=== PATIENT | female | born 1990 | race Caucasian/White ===

== ENCOUNTER 2021-01-19 17:04 | Emergency (ER) | payer SELFPAY ==
[2021-01-19 18:32] VITALS: BP 134/81
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
[2021-01-19 18:57] LABS: Bacteria,Urine 1+ /HPF (Negative); Bilirubin,Urine NEG (Negative); Blood,Urine SM (Negative); Color,Urine Yellow (Yellow); Mucus,Urine FEW /HPF; Protein,Urine <15 mg/dL mg/dL (Negative); Urobilinogen,Urine < 2.0 mg/dL (<2.0)
[2021-01-19 19:15] LABS: HCG Qualitative,Urine Negative (Negative)
[2021-01-19] MEDS ORDERED: KETOROLAC 30 MG/1 ML INJ IM ONE (19:21)
[2021-01-19] MEDS ORDERED: dexAMETHasone 20 MG/5 ML VIAL IM ONE (19:21)
--- NOTE | 2021-01-19 20:22 | Cat Scan Report ---
CT LUMBAR SPINE WITHOUT CONTRAST HISTORY: Numbness and tingling in the legs COMPARISON: None TECHNIQUE: CT images of the lumbar spine were obtained without contrast. Sagittal and coronal reform ats were post-processed.All CT scans at this location are performed using CT dose reduction for ALARA by means of automated exposure control. CONTRAST: None. FINDINGS: Alignment: Normal. No traumatic subluxation. Vertebrae:Normal Disc spaces: L1-L2, L2-L3 and L3-L4 disc spaces: Normal L4-L5: Shallow disc bulge; mild facet joint hypertrophic changes; neuroforamina are normal L5-S1: Bulging disc; neuroforamina are normal Facet Joints:No significant abnormality. Additional Findings: Nonobstructive renal calculi bilaterally IMPRESSION: 1. No significant abnormality. Signer Name: Caitlin Obrien MD Signed: 01/19/2021 8:18 PM Workstation Name: [id number]
== END 2021-01-19 21:09 | disposition home or self-care (01) ==
LOC: ED 17:04
DX: M51.26 Other intervertebral disc displacement, lumbar region (principal); F12.90 Cannabis use, unspecified, uncomplicated; F17.200 Nicotine dependence, unspecified, uncomplicated; Z79.899 Other long term (current) drug therapy; V89.2XXA Person injured in unspecified motor-vehicle accident, traffic, initial encounter; Y93.89 Activity, other specified; Y92.488 Other paved roadways as the place of occurrence of the external cause; Y99.8 Other external cause status
CPT/HCPCS: 72131; 81001; 81025; 96372; 99284; J1100; J1885

== ENCOUNTER 2021-07-31 02:53 | Emergency (ER) | payer MEDICAID ==
[2021-07-31 05:16] VITALS: BP 133/86
[2021-07-31] MEDS ORDERED: KETOROLAC 30 MG/1 ML INJ IM ONE ×2 (05:33→08:12)
[2021-07-31] MEDS ORDERED: dexAMETHasone 20 MG/5 ML VIAL IM ONE ×2 (05:33→08:12)
--- NOTE | 2021-07-31 06:30 | XRay Report ---
Cervical spine 3 views INDICATION: Neck pain FINDINGS: Mild straightening of normal cervical spine curvature. No prevertebral soft tissue swelling . No acute fracture. Signer Name: Ozzy Cole MD Signed: 07/31/2021 6:26 AM Workstation Name: [id number]
[2021-07-31] MEDS ORDERED: KETOROLAC 30 MG/1 ML INJ IM SCH (08:00)
[2021-07-31] MEDS ORDERED: dexAMETHasone 20 MG/5 ML VIAL IM SCH (08:00)
--- NOTE | 2021-07-31 08:12 | Emergency Department Report ---
ED General Adult HPI - General Chief complaint: Extremity Injury, Upper Stated complaint: RIGHT ARM PAIN Time Seen by Provider: 07/31/21 07:43 Source: patient Mode of arrival: Ambulatory Limitations: No Limitations - History of Present Illness Initial comments: 31-year-old morbid obese -[place] female presents to the emergency room complaining of 8-day history of right arm pain that feels like electrical sharp pain that is constantly running from her right side of her neck to her fingers. She denies any trauma. She states that she had only lifted a heavy suitcase. She states she has tried ibuprofen Tylenol and IcyHot with no resolution. She states that she did take a muscle relaxant that she thought was 300 mg. Her last menstrual period was 06/30/2021 no possibility of being . Onset/Timin -: days(s) Location: right, upper extremity Radiation: distal Severity scale (0 -10): 9 Quality: sharp, other (Tingling electrical shocks) Consistency: constant Improves with: none Worsens with: movement (Appears to be gabapentin) Associated Symptoms: denies other symptoms Treatments Prior to Arrival: none - Related Data Previous Rx's Medication Instructions Recorded Last Taken Type Menthol/Camphor [[place] 1 applicatio TP BID #18 oint...g. 01/19/21 Unknown Rx Ointment] Naproxen 375 mg PO BID PRN #20 tablet 01/19/21 Unknown Rx Prednisone [predniSONE 10 mg 10 mg PO .TAPER #1 tab.ds.pk 01/19/21 Unknown Rx (6-Day Pack, 21 Tabs)] methOCARBAMOL [Robaxin TAB] 500 mg PO BID PRN #20 tab 01/19/21 Unknown Rx Gabapentin 100 mg PO Q8HR #15 capsule 07/31/21 Unknown Rx Ketorolac [Toradol] 10 mg PO Q6H PRN #20 07/31/21 Unknown Rx Allergies Allergy/AdvReac Type Severity Reaction Status Date / Time No Known Allergies Allergy Unverified 01/19/21 18:32 ED Review of Systems ROS: Stated complaint: RIGHT ARM PAIN Other details as noted in HPI Comment: All other systems reviewed and negative ED Past Medical Hx - Past Medical History Previous Medical History?: No - Social History Smoking Status: Current Some Day Smoker Substance Use Type: Marijuana - Medications Home Medications: Home Medications Medication Instructions Recorded Confirmed Last Taken Type Menthol/Camphor [[place] 1 applicatio TP BID #18 oint...g. 01/19/21 Unknown Rx Ointment] Naproxen 375 mg PO BID PRN #20 tablet 01/19/21 Unknown Rx Prednisone [predniSONE 10 mg 10 mg PO .TAPER #1 tab.ds.pk 01/19/21 Unknown Rx (6-Day Pack, 21 Tabs)] methOCARBAMOL [Robaxin TAB] 500 mg PO BID PRN #20 tab 01/19/21 Unknown Rx Gabapentin 100 mg PO Q8HR #15 capsule 07/31/21 Unknown Rx Ketorolac [Toradol] 10 mg PO Q6H PRN #20 07/31/21 Unknown Rx ED Physical Exam - General Limitations: No Limitations General appearance: alert, in no apparent distress - Head Head exam: Present: atraumatic, normocephalic - Eye Eye exam: Present: normal appearance - ENT ENT exam: Present: normal external ear exam - Neck Neck exam: Present: full ROM - Respiratory Respiratory exam: Present: normal lung sounds bilaterally. Absent: respiratory distress, accessory muscle use - Cardiovascular Cardiovascular Exam: Present: regular rate, normal rhythm - Expanded Upper Extremity Exam Right Shoulder Exam: Present: full ROM. Absent: tenderness, swelling Upper Arm exam: Present: normal inspection, full ROM. Absent: tenderness Elbow exam: Present: normal inspection. Absent: full ROM, tenderness Forearm Wrist exam: Present: normal inspection, full ROM. Absent: tenderness, swelling Hand Wrist exam: Present: normal inspection, full ROM. Absent: tenderness Neuro motor exam: Present: wrist extension intact, thumb opposition intact, thumb IP flexion intact Neurosensory exam: Present: 2-point discrimination, radial nerve intact, ulnar nerve intact, median nerve intact Vascular: Present: normal capillary refill. Absent: vascular compromise - Back Exam Back exam: Present: normal inspection - Neurological Exam Neurological exam: Present: alert, oriented X3, normal gait - Psychiatric Psychiatric exam: Present: normal affect, normal mood - Skin Skin exam: Present: warm, dry, intact, normal color. Absent: rash ED Course Vital Signs 07/31/21 05:14 Temperature 98.0 F Pulse Rate 69 Respiratory 20 Rate Blood Pressure 133/86 [Right] O2 Sat by Pulse 98 Oximetry ED Medical Decision Making - Medical Decision Making 31-year-old morbid obese -[place] female presents to the emergency room complaining of 8-day history of right arm pain that feels like electrical sharp pain that is constantly running from her right side of her neck to her fingers. She denies any trauma. She states that she had only lifted a heavy suitcase. She states she has tried ibuprofen Tylenol and IcyHot with no resolution. She states that she did take a muscle relaxant that she thought was 300 mg. Her last menstrual period was 06/30/2021 no possibility of being . Patient is given a Toradol injection of 30 mg IM and a steroid injection of dexamethasone 10 mg IM. Discussed with patient I will place her on gabapentin 100 mg 3 times a day for 5 days and she is to follow-up with an orthopedic provider and a neurologist. Critical care attestation.: If time is entered above; I have spent that time in minutes in the direct care of this critically ill patient, excluding procedure time. ED Disposition Clinical Impression: Right upper limb pain, Numbness and tingling of right arm Disposition: 01 HOME / SELF CARE / HOMELESS Is pt being admited?: No Does the pt Need Aspirin: No Condition: Stable Instructions: Paresthesia, [id number] Additional Instructions: Please take medications as prescribed. Do not operate heavy machinery while taking gabapentin. Is important to increase your fluid intake. Follow-up with a neurologist as well as an orthopedic provider I have listed their information below for your convenience. Prescriptions: Gabapentin 100 mg PO Q8HR #15 capsule Ketorolac [Toradol] 10 mg PO Q6H PRN #20 PRN Reason: Pain Referrals: PRIMARY MD RUI [Primary Care Provider] - 3-5 Days NIGEL GALAVIZ II, MD [Staff Physician] - 3-5 Days [facility] [Provider Group] - 3-5 Days Forms: Work/School Release Form(ED)
== END 2021-07-31 09:16 | disposition home or self-care (01) ==
LOC: ED 02:53
DX: M79.621 Pain in right upper arm (principal); R20.2 Paresthesia of skin; F17.200 Nicotine dependence, unspecified, uncomplicated; F12.90 Cannabis use, unspecified, uncomplicated
CPT/HCPCS: 72040; 96372; 99283; J1100; J1885

== ENCOUNTER 2021-08-12 22:42 | Emergency (ER) | payer MEDICAID ==
[2021-08-13 02:41] VITALS: BP 150/85
[2021-08-13 03:20] LABS: Basophils # (Auto) 0.1 K/mm3 (0.0-0.1); Basophils % (Auto) 0.6 % (0.0-1.8); Eosinophils % (Auto) 0.3 % (0.0-4.3); Hematocrit 35.5 % (30.3-42.9); Hemoglobin 11.5 gm/dl (10.1-14.3); Lymphocytes # (Auto) 3.3 K/mm3 (1.2-5.4); Lymphocytes % (Auto) 29.3 % (13.4-35.0); Mean Corpuscular HGB Conc 32 % (30-34); Mean Corpuscular Volume 87 fl (79-97); Monocytes # (Auto) 0.8 K/mm3 (0.0-0.8); Monocytes % (Auto) 7.2 % (0.0-7.3); Platelet Count 339 K/mm3 (140-440); Red Blood Count 4.07 M/mm3 (3.65-5.03); Red Cell Distribution Width 14.6 % (13.2-15.2)
--- NOTE | 2021-08-13 03:35 | Emergency Department Report ---
ED Abdominal Pain HPI - General Chief Complaint: Urogenital-Female Stated Complaint: TUBE PUI?: No Time Seen by Provider: 08/13/21 03:15 Source: patient Mode of arrival: Ambulatory Limitations: No Limitations - History of Present Illness Initial Comments: 31-year-old female presents to the ER today with complaints of left flank pain. Patient states that the symptoms started 2 days ago. She states that the pain has been radiating to her left abdomen. She described as a constant sharp pain and she states that he has been constant and very severe for the past 2 days. She states that she has had multiple episodes of vomiting. She reports urinary frequency but no hematuria or dysuria. She denies any bowel changes. She denies any fever or chills. She denies any abnormal vaginal bleeding. She states that her last menstrual cycle was July 23 but she noticed that it was credit authorizer than normal and only lasted 2 to 3 days. Patient states that she thought her symptoms were related to her kidney stones as she has had them before in the past. She went to the urgent care yesterday, and she states that the lab work including STD testing and HIV and a urinalysis. She states that she found out she was . She states that the provider was concerned that she may be having an ectopic and recommended she come to the ER. Patient states that she is AB 4. Complaint: flank pain -: days(s) (2) Severity scale (0 -10): 3 - Related Data Previous Rx's Medication Instructions Recorded Last Taken Type Menthol/Camphor [[place] 1 applicatio TP BID #18 oint...g. 01/19/21 Unknown Rx Ointment] Naproxen 375 mg PO BID PRN #20 tablet 01/19/21 Unknown Rx Prednisone [predniSONE 10 mg 10 mg PO .TAPER #1 tab.ds.pk 01/19/21 Unknown Rx (6-Day Pack, 21 Tabs)] methOCARBAMOL [Robaxin TAB] 500 mg PO BID PRN #20 tab 01/19/21 Unknown Rx Gabapentin 100 mg PO Q8HR #15 capsule 07/31/21 Unknown Rx HYDROcodone/APAP 5-325 [[place] 1 each PO Q4HR PRN #10 tablet 08/13/21 Unknown Rx 5/325] Ketorolac [Toradol] 10 mg PO Q6H PRN #20 02/08/22 Unknown Rx Ondansetron [Zofran Odt] 4 mg PO Q8HR PRN #12 tab.rapdis 08/13/21 Unknown Rx Tamsulosin [Flomax] 0.4 mg PO QDAY #5 cap 08/13/21 Unknown Rx Allergies Allergy/AdvReac Type Severity Reaction Status Date / Time banana Allergy Itching Verified 08/13/21 02:36 kiwi Allergy Itching Verified 08/13/21 02:36 ED Review of Systems ROS: Stated complaint: TUBE Other details as noted in HPI Comment: All other systems reviewed and negative Constitutional: denies: chills, fever, malaise, weakness Eyes: denies: eye pain, eye discharge, vision change ENT: denies: ear pain, throat pain Respiratory: denies: cough, shortness of breath, SOB with exertion, SOB at rest, wheezing Cardiovascular: denies: chest pain, palpitations, dyspnea on exertion Gastrointestinal: abdominal pain, nausea, vomiting, other (Left flank pain). denies: diarrhea, constipation, hematemesis, hematochezia Genitourinary: denies: urgency, dysuria, frequency, hematuria, discharge, dyspareunia Musculoskeletal: denies: back pain, joint swelling, arthralgia Skin: denies: rash, lesions, change in color, change in hair/nails, pruritus Neurological: denies: headache, weakness, numbness, paresthesias, confusion, abnormal gait, vertigo Psychiatric: denies: anxiety, depression, auditory hallucinations, visual hallucinations, homicidal thoughts, suicidal thoughts Hematological/Lymphatic: denies: easy bleeding, easy bruising ED Past Medical Hx - Past Medical History Previous Medical History?: No - Surgical History Past Surgical History?: No - Social History Smoking Status: Current Some Day Smoker Substance Use Type: Marijuana - Medications Home Medications: Home Medications Medication Instructions Recorded Confirmed Last Taken Type Menthol/Camphor [[place] 1 applicatio TP BID #18 oint...g. 01/19/21 Unknown Rx Ointment] Naproxen 375 mg PO BID PRN #20 tablet 01/19/21 Unknown Rx Prednisone [predniSONE 10 mg 10 mg PO .TAPER #1 tab.ds.pk 01/19/21 Unknown Rx (6-Day Pack, 21 Tabs)] methOCARBAMOL [Robaxin TAB] 500 mg PO BID PRN #20 tab 01/19/21 Unknown Rx Gabapentin 100 mg PO Q8HR #15 capsule 07/31/21 Unknown Rx HYDROcodone/APAP 5-325 [[place] 1 each PO Q4HR PRN #10 tablet 08/13/21 Unknown Rx 5/325] Ketorolac [Toradol] 10 mg PO Q6H PRN #20 08/13/21 Unknown Rx Ondansetron [Zofran Odt] 4 mg PO Q8HR PRN #12 tab.rapdis 08/13/21 Unknown Rx Tamsulosin [Flomax] 0.4 mg PO QDAY #5 cap 08/13/21 Unknown Rx ED Physical Exam - General Limitations: No Limitations General appearance: alert, in no apparent distress - Head Head exam: Present: atraumatic, normocephalic, normal inspection - Eye Eye exam: Present: normal appearance, PERRL, EOMI Pupils: Present: normal accommodation - Neck Neck exam: Present: normal inspection, full ROM. Absent: meningismus - Respiratory Respiratory exam: Present: normal lung sounds bilaterally. Absent: respiratory distress, wheezes, rales, rhonchi - Cardiovascular Cardiovascular Exam: Present: regular rate, normal rhythm, normal heart sounds - GI/Abdominal GI/Abdominal exam: Present: soft, tenderness (LLQ abd ttp with mild guarding but no rebound). Absent: distended, guarding, rebound, rigid - Back Exam Back exam: Present: normal inspection, full ROM, CVA tenderness (L) - Neurological Exam Neurological exam: Present: alert, oriented X3, CN II-XII intact, normal gait - Psychiatric Psychiatric exam: Present: normal affect, normal mood - Skin Skin exam: Present: intact ED Course Vital Signs 08/13/21 02:31 Temperature 98.6 F Pulse Rate 69 Respiratory 17 Rate Blood Pressure 150/85 [Right] O2 Sat by Pulse 98 Oximetry ED Medical Decision Making - Lab Data Result diagrams: 08/13/21 02:54 08/13/21 02:54 Laboratory Tests 08/13/21 08/13/21 08/13/21 02:54 02:54 02:54 WBC 11.3 H RBC 4.07 Hgb 11.5 Hct 35.5 MCV 87 MCH 28 MCHC 32 RDW 14.6 Plt Count 339 Lymph % (Auto) 29.3 [place] % (Auto) 7.2 Eos % (Auto) 0.3 Baso % (Auto) 0.6 Lymph # (Auto) 3.3 [place] # (Auto) 0.8 Eos # (Auto) 0.0 Baso # (Auto) 0.1 Seg Neutrophils % 62.6 Seg Neutrophils # 7.1 Sodium 142 Potassium 3.7 Chloride 107.0 Carbon Dioxide 23 Anion Gap 16 BUN 8 Creatinine 0.8 Estimated GFR > 60 BUN/Creatinine Ratio 10 Glucose 89 Calcium 8.8 Total Bilirubin 0.40 AST 16 ALT 23 Alkaline Phosphatase 67 Total Protein 7.5 Albumin 4.0 Albumin/Globulin Ratio 1.1 Lipase 17 HCG, Quant 1.81 Urine Color Urine Turbidity Urine pH Ur Specific [place] Urine Protein Urine Glucose (UA) Urine Ketones Urine Blood Urine Nitrite Urine Bilirubin Urine Urobilinogen Ur Leukocyte Esterase Urine WBC (Auto) Urine RBC (Auto) U Epithel Cells (Auto) Urine HCG, Qual 08/13/21 Unknown WBC RBC Hgb Hct MCV MCH MCHC RDW Plt Count Lymph % (Auto) [place] % (Auto) Eos % (Auto) Baso % (Auto) Lymph # (Auto) [place] # (Auto) Eos # (Auto) Baso # (Auto) Seg Neutrophils % Seg Neutrophils # Sodium Potassium Chloride Carbon Dioxide Anion Gap BUN Creatinine Estimated GFR BUN/Creatinine Ratio Glucose Calcium Total Bilirubin AST ALT Alkaline Phosphatase Total Protein Albumin Albumin/Globulin Ratio Lipase HCG, Quant Urine Color Yellow Urine Turbidity Clear Urine pH 6.0 Ur Specific [place] 1.011 Urine Protein <15 mg/dl Urine Glucose (UA) Neg Urine Ketones Neg Urine Blood Mod Urine Nitrite Neg Urine Bilirubin Neg Urine Urobilinogen < 2.0 Ur Leukocyte Esterase Neg Urine WBC (Auto) 5.0 Urine RBC (Auto) 3.0 U Epithel Cells (Auto) 1.0 Urine HCG, Qual Negative - Radiology Data Radiology results: report reviewed Patient: CHET DE LA GARZA MR #: [id number] : 1990 Acct:[id number] Age/Sex: 31 / F ADM Date: 08/12/21 Loc: ED Attending Dr: Ordering Physician: JAMESON DOWELL Date of Service: 08/13/21 Procedure(s): CT abdomen pelvis wo con Accession Number(s): [id number] cc: JAMESON DOWELL CT ABDOMEN AND PELVIS WITHOUT CONTRAST INDICATION / CLINICAL INFORMATION: Pt complains of LEFT sided flank pain. TECHNIQUE: Axial CT images were obtained through the abdomen and pelvis without IV contrast. All CT scans at this location are performed using CT dose reduction for ALARA by means of automated exposure control. COMPARISON: None available. FINDINGS: LOWER CHEST: No significant abnormality of the imaged chest. LIVER: No significant abnormality. GALLBLADDER: No significant abnormality. BILE DUCTS: No significant abnormality. SPLEEN: No significant abnormality. PANCREAS: No significant abnormality. ADRENALS: No significant abnormality. RIGHT KIDNEY / URETER: Multiple nonobstructing right renal nephroliths the largest within the upper pole measuring 4 mm. LEFT KIDNEY / URETER: Multiple left renal nephroliths measuring 2 to 3 mm. Additional 3-4 mm nephrolith within the proximal left ureter with resulting moderate obstruction/moderate hydr onephrosis. No additional urolithiasis. STOMACH / DUODENUM / SMALL BOWEL: No significant abnormality. COLON: No significant abnormality. APPENDIX: No significant abnormality. PERITONEUM: No free air or free fluid are present within the abdomen or pelvis. LYMPH NODES: No significant adenopathy. AORTA / ARTERIES: No significant abnormality. IVC / VEINS: No significant abnormality. URINARY BLADDER: No significant abnormality. REPRODUCTIVE ORGANS: No significant abnormality. ADDITIONAL ABDOMINAL/PELVIC FINDINGS: None. SKELETAL SYSTEM: No significant abnormality. IMPRESSION: 1. 3-4 mm proximal left ureteral stone with moderate hydronephrosis and obstructive change. 2. Additional bilateral nephroliths. Signer Name: Kamran Palm II, MD Signed: 08/13/2021 5:41 AM Workstation Name: [id number] Transcribed By: MARCIA Dictated By: KAMRAN PALM II, MD Electronically Authenticated By: KAMRAN PALM II, MD Signed Date/Time: 08/13/21 0541 DD/ 0538 TD/TT: - Medical Decision Making Patient labs reviewed,--CBC and CMP unremarkable. Quantitative hCG was 1.81 which is considered negative for , urine negative, UA also does not suggest a UTI. Patient CT abdomen pelvis without contrast shows 3-4 mm proximal left ureteral stone with moderate hydronephrosis and obstructive change. 2. Additional bilateral nephroliths. Patient currently resting comfortably. Her pain has much improved after IV fluids, morphine, Toradol and her nausea and vomiting is also improved. She has not vomited during stay. She has been observed sitting complete on recliner on her phone. She is not toxic or ill-appearing. Her vital signs are stable. Discussed all results with patient including the CT findings. Patient will be given a prescription for Flomax, pain meds and antiemetics as well as Toradol. She was encouraged to increase her water intake and she will be given referral information to PCP as well as urologist. Patient understands to return to the ER if her symptoms worsens or changes in any way. Critical care attestation.: If time is entered above; I have spent that time in minutes in the direct care of this critically ill patient, excluding procedure time. ED Disposition Clinical Impression: Kidney stone on left side Disposition: HOME / SELF CARE / HOMELESS Is pt being admited?: No Does the pt Need Aspirin: No Condition: Stable Instructions: Kidney Stones Additional Instructions: I recommend that you take the Toradol, the hydrocodone, and the Flomax as prescribed. Take the Zofran as prescribed to help with any nausea or vomiting. Increase your water intake. Follow-up with the urologist listed in the discharge instructions this week or next week. Return to the ER if your symptoms worsens in any way. Prescriptions: Tamsulosin [Flomax] 0.4 mg PO QDAY #5 cap HYDROcodone/APAP 5-325 [[place] 5/325] 1 each PO Q4HR PRN #10 tablet PRN Reason: Pain Ketorolac [Toradol] 10 mg PO Q6H PRN #20 PRN Reason: Pain Ondansetron [Zofran Odt] 4 mg PO Q8HR PRN #12 tab.rapdis PRN Reason: nausea or vomiting Referrals: RANDEE ARANA MD [Staff Physician] - 3-5 Days AMAN ALONSO MD [Staff Physician] - 3-5 Days (Urologist) Forms: Work/School Release Form(ED) Time of Disposition: 05:54
[2021-08-13 03:37] LABS: Alanine Aminotransferase 23 units/L (7-56); BUN/Creatinine Ratio 10; Blood Urea Nitrogen 8 mg/dL (7-17); Calcium 8.8 mg/dL (8.4-10.2); Hemolysis Index 0
[2021-08-13] MEDS ORDERED: ONDANSETRON 4 MG/2 ML INJ IV ONE (03:38)
[2021-08-13] MEDS ORDERED: SODIUM CHLORIDE 0.9% 1000 ML 1,000 ML IV ONE (03:38)
[2021-08-13] MEDS ORDERED: MORPHINE 2 MG/1 ML INJ IV ONE (03:59)
[2021-08-13] MEDS ORDERED: KETOROLAC 30 MG/1 ML INJ IV ONE (03:59)
[2021-08-13 04:32] LABS: Bilirubin,Urine NEG (Negative); Blood,Urine MOD (Negative); Color,Urine Yellow (Yellow); Protein,Urine <15 mg/dL mg/dL (Negative); Urobilinogen,Urine < 2.0 mg/dL (<2.0)
[2021-08-13 04:34] LABS: HCG Qualitative,Urine Negative (Negative)
--- NOTE | 2021-08-13 05:45 | Cat Scan Report ---
CT ABDOMEN AND PELVIS WITHOUT CONTRAST INDICATION / CLINICAL INFORMATION: Pt complains of LEFT sided flank pain. TECHNIQUE: Axial CT images were obtained through the abdomen and pelvis without IV contrast. All CT scans at this location are performed using CT dose reduction for ALARA by means of automated exposure control. COMPARISON: None available. FINDINGS: LOWER CHEST: No significant abnormality of the imaged chest. LIVER: No significant abnormality. GALLBLADDER: No significant abnormality. BILE DUCTS: No significant abnormality. SPLEEN: No significant abnormality. PANCREAS: No significant abnormality. ADRENALS: No significant abnormality. RIGHT KIDNEY / URETER: Multiple nonobstructing right renal nephroliths the largest within the upper p ole measuring 4 mm. LEFT KIDNEY / URETER: Multiple left renal nephroliths measuring 2 to 3 mm. Additional 3-4 mm nephroli th within the proximal left ureter with resulting moderate obstruction/moderate hydronephrosis. No ad ditional urolithiasis. STOMACH / DUODENUM / SMALL BOWEL: No significant abnormality. COLON: No significant abnormality. APPENDIX: No significant abnormality. PERITONEUM: No free air or free fluid are present within the abdomen or pelvis. LYMPH NODES: No significant adenopathy. AORTA / ARTERIES: No significant abnormality. IVC / VEINS: No significant abnormality. URINARY BLADDER: No significant abnormality. REPRODUCTIVE ORGANS: No significant abnormality. ADDITIONAL ABDOMINAL/PELVIC FINDINGS: None. SKELETAL SYSTEM: No significant abnormality. IMPRESSION: 1. 3-4 mm proximal left ureteral stone with moderate hydronephrosis and obstructive change. 2. Additional bilateral nephroliths. Signer Name: Jac Street II, MD Signed: 08/13/2021 5:41 AM Workstation Name: [email or web address]
[2021-08-13] MEDS ORDERED: TAMSULOSIN 0.4 MG CAP PO ONE (05:54)
== END 2021-08-13 06:15 | disposition home or self-care (01) ==
LOC: ED 22:42
DX: N20.0 Calculus of kidney (principal); F17.200 Nicotine dependence, unspecified, uncomplicated; F12.90 Cannabis use, unspecified, uncomplicated; Z91.018 Allergy to other foods; Z79.899 Other long term (current) drug therapy
CPT/HCPCS: 36415; 74176; 80053; 81001; 81025; 83690; 84702; 85025; 96361; 96374; 96375; 99284; J1885; J2270; J2405; J7030; Q0162